=== PATIENT | male | born 1940 | race Caucasian/White ===

== ENCOUNTER 2019-01-30 05:31 | Outpatient (CLI) | payer MEDICARE ==
[~2019-01-30] VITALS: Ht 190.5 cm; Wt 96.4 kg
[~2019-01-30 05:31] MED LIST: ALLP300T PO; ASPI325T32 PO; CODE-54 PO; HCT25T PO; IRBE150T50 PO; LISI40TA PO; METO50TA7 PO; ROSU20TA14 PO
[2019-01-30] MEDS ORDERED: METO100T12 PO (09:44)
[2019-01-30] MEDS ORDERED: AMLO10TA7 PO (09:44)
[2019-01-30] MEDS ORDERED: ROSU20TA32 PO (09:44)
[2019-01-30] MEDS ORDERED: ASPI-999 PO (09:44)
[2019-01-30] MEDS ORDERED: ACET-789 PO (09:44)
== END 2019-01-30 09:47 | disposition home or self-care (01) ==
LOC: PREOP 05:31
PROVIDERS: ATTEND Internal Medicine
DX: Z01.818 Encounter for other preprocedural examination (principal)

== ENCOUNTER 2019-02-06 07:40 | Day surgery (SDC) | payer MEDICARE ==
--- NOTE | 2019-01-27 07:24 | HISTORY AND PHYSICAL ---
DATE OF SERVICE: COLONOSCOPY H AND P HISTORY OF PRESENT ILLNESS: The patient is a 78-year-old white male referred by Dr. Plata for surveillance colonoscopy. He has a past history of adenomatous colonic polyps and his last colonoscopy was a little over eight years ago. At that time, he did not have any polyps. Did have mild diverticular disease. He reports no change in bowel habits. He has noted no blood in the stool. Denies abdominal pain and reports his weight has been stable. PAST MEDICAL HISTORY: Significant for hypertension and hyperlipidemia with no known history of coronary artery disease or cerebrovascular disease. PAST SURGICAL HISTORY: He had an appendectomy of roughly 60 years ago, has had several arthroscopic surgeries in the right knee over 10 years ago for meniscal tear and has had retinal reattachment in 2007. FAMILY HISTORY: He is not aware of any family history for colon cancer, inflammatory bowel disease. SOCIAL HISTORY: He is retired. Reports no significant alcohol intake with no smoking history. PHYSICAL EXAMINATION: GENERAL: Reveals a well-appearing elderly male, appears to be in no acute distress. VITAL SIGNS: Weight was 212 pounds, which was down 19 pounds from his last office weight in 2010, blood pressure was 140/86. HEENT: Unremarkable. Sclerae nonicteric. He has a Mallampati class 2 pharyngeal configuration. No pharyngeal erythema or exudate noted. CHEST: Clear to auscultation. CARDIOVASCULAR: Reveals a regular rate and rhythm without murmur, S3 or S4. ABDOMEN: Soft, supple without mass, organomegaly or tenderness. Bowel sounds are positive. No bruits are noted. EXTREMITIES: Reveal no cyanosis, clubbing or edema. ASSESSMENT AND PLAN: The patient is set up for surveillance colonoscopy on 02/06/2019. Prep instructions with the [employer]ott-Prep kit were given and questions were answered. He was advised to go ahead and stop aspirin now and we will have him resume that following colonoscopy. I thank you for the referral of this pleasant gentleman. Job ID: [id number] DocumentID: [id number] Dictated Date: 01/26/2019 10:43:18 Meal Room Hand Date: 01/26/2019 11:56:35 Dictated By: REMINGTON MENDEZ MD [facility]
[2019-02-06] VITALS (16 sets, daily range): BP systolic 137–185; BP diastolic 63–86
[~2019-02-06] VITALS: Ht 190.5 cm; Wt 96.4 kg
[~2019-02-06 07:40] MED LIST changes: +ACET-789 PO; +AMLO10TA7 PO; +ASPI-999 PO; +METO100T12 PO; +ROSU20TA32 PO
[2019-02-06] MEDS ORDERED: D5 LR IV SOLUTION 1,000 ML IV ONE (07:53)
--- NOTE | 2019-02-06 08:04 | Pre-Op Note & Conscious Sedat ---
Pre-Operative Progress Note H&P Reviewed The H&P was reviewed, patient examined and no changes noted. Date H&P Reviewed: Feb 06, 2019 Time H&P Reviewed: 08:03 Conscious Sedation Pre-Proced ASA Score 2 For ASA 3 and 4: Consider anesthesia and medical clearance. Also, for patients with a history of failed moderate sedation consider anesthesia. Airway Lungs Heart ASA score ASA 1: a normal healthy patient ASA 2: a patient with a mild systemic disease (mid diabetes, controlled hypertension, obesity ASA 3: a patient with a severe systemic disease that limits activity (angina, COPD, prior Myocardial infarction) ASA 4: a patient with an incapacitating disease that is a constant threat to life (CHF, renal failure) ASA 5: a moribund patient not expected to survive 24 hrs. (ruptured aneurysm) ASA 6: a declared brain- patient whose organs are being harvested. For emergent operations, add the letter E after the classification Mallampati Classification Grade 2 Sedation Plan Analgesia, Amnesia, Plan communicated to team members, Discussed options with patient/fam, Discussed risks with patient/fam The patient is an appropriate candidate to undergo the planned procedure, sedation, and anesthesia. The patient immediately re-assessed prior to indication. REMINGTON MENDEZ MD Feb 06, 2019 08:04
[2019-02-06] MEDS ORDERED: MIDAZOLAM 5 MG/5 ML (VERSED) VIAL IV PRN (08:15)
[2019-02-06] MEDS ORDERED: D5 LR IV SOLUTION 1,000 ML IV PRN (08:15)
[2019-02-06] MEDS ORDERED: LIDOCAINE JELLY 2% 6 ML SYRINGE MM PRN (08:15)
[2019-02-06] MEDS ORDERED: fentaNYL INJECTION 100 MCG/2 ML AMP IVP ONE (08:15)
[2019-02-06] MEDS ORDERED: MIDAZOLAM 5 MG/5 ML (VERSED) VIAL ONE (09:00)
[2019-02-06] MEDS ORDERED: fentaNYL INJECTION 100 MCG/2 ML AMP ONE (09:00)
[2019-02-06] MEDS ORDERED: LIDOCAINE JELLY 2% 6 ML SYRINGE ONE (09:00)
[2019-02-06] MEDS ORDERED: SIMETHICONE 40 MG/0.6 ML (MYLICON DROPS) 30 ML BTL ONE (09:24)
[2019-02-06] MEDS ORDERED: SIMETHICONE 40 MG/0.6 ML (MYLICON DROPS) 30 ML BTL PO PRN (09:30)
--- NOTE | 2019-02-07 01:54 | OPERATIVE REPORT ---
DATE OF SERVICE: COLONOSCOPY SUMMARY INDICATION FOR THE PROCEDURE: Surveillance colonoscopy, history of colon polyps. The patient was placed in the left lateral decubitus position. Prior to undergoing colonoscopy, digital rectal evaluation was performed. Anal sphincter tone was normal and the perianal reflexes intact. There was a mobile nodule noted posteriorly in the proximal anal canal that was not fixed. No tenderness was noted by the patient who reports a past history of symptomatic anal fissures with inflammatory symptoms that have not troubled him in number of years. No other abnormalities were noted on digital inspection of anal canal or distal rectal vault. The colonoscope was then inserted into the rectum and under direct visualization advanced to the cecum. The cecum was identified by identification of the ileocecal valve and cecal strap. Photographic documentation was obtained. Careful inspection was made as the colonoscope was withdrawn. The patient tolerated the procedure well. The quality of prep was good. FINDINGS: The aforementioned abnormality noted in the anal canal appeared to be a prominent scarred papilla. A cold biopsy was obtained with no bleeding and most compatible with scar tissue. The rectum was unremarkable. No inflammatory change was noted and no active fissures were appreciated. Present in the mid sigmoid colon was a diminutive polyp measuring about 3 mm in size. It was biopsied and ablated with no subsequent blood loss. Several small sigmoid diverticulum were present without evidence for diverticulitis. The descending colon, splenic flexure, transverse colon, hepatic flexure, ascending colon and cecum were unremarkable. ASSESSMENT: One diminutive polyp was removed from the mid sigmoid colon with no other evidence for neoplasia. The patient did have what appears to be scarred anal papilla. I suspect sequela from previous symptomatic fissures, which have not troubled the patient in some time. A biopsy is pending and as long as there are no surprise on pathology, I advise consideration for repeat surveillance colonoscopy in 5 years pending the quality of his health at that time and estimation of life expectancy. Mild diverticular disease confined to the sigmoid colon was present without evidence for diverticulitis. I thank you for the referral of this pleasant gentleman. Job ID: [id number] DocumentID: [id number] Dictated Date: 02/06/2019 17:07:41 Design Maker Date: 02/07/2019 01:53:02 Dictated By: REMINGTON MENDEZ MD
== END 2019-02-06 10:40 | disposition home or self-care (01) ==
LOC: ENDO 07:40
PROVIDERS: ATTEND Internal Medicine
DX: Z12.11 Encounter for screening for malignant neoplasm of colon (principal); D12.5 Benign neoplasm of sigmoid colon; K62.89 Other specified diseases of anus and rectum; K57.30 Diverticulosis of large intestine without perforation or abscess without bleeding; Z88.8 Allergy status to other drugs, medicaments and biological substances; Z90.89 Acquired absence of other organs; Z79.899 Other long term (current) drug therapy